=== PATIENT | male | born 1950 | race Caucasian/White ===

== ENCOUNTER 2018-04-27 16:56 | Emergency (ER) | payer BC ==
[~2018-04-27] VITALS: Ht 177.8 cm; Wt 78.0 kg
[~2018-04-27 16:56] MED LIST: GABA300C10 PO; NAPR-685 PO; PROP10TA PO; ZOLP12.54 PO
[2018-04-27 17:23] VITALS: BP 132/72
[2018-04-27] MEDS ORDERED: THIAMINE 100MG TABLET PO ONE (18:00)
[2018-04-27 18:20] LABS: BASOPHILS # (AUTO) 0.05 x10^3/uL (0-0.1); BASOPHILS % (AUTO) 1 % (0-1); EOSINOPHILS # (AUTO) 0.01 x10^3/uL (0-0.4); EOSINOPHILS % (AUTO) 0 % (1-7); LYMPHOCYTES % (AUTO) 20 % (22-44); MD NO; MEAN CORPUSCULAR HEMOGLOBIN 30.9 pg (27.5-34.5); MEAN CORPUSCULAR HGB CONC 33.7 g/dL (33.2-36.2); MEAN CORPUSCULAR VOLUME 91.7 fL (81-97); MEAN PLATELET VOLUME 7.6 fL (7.4-10.4); MONOCYTES # (AUTO) 0.92 x10^3/uL (0.2-0.8); MONOCYTES % (AUTO) 10 % (2-9); NEUTROPHILS # (AUTO) 6.43 x10^3/uL (1.8-6.8); NEUTROPHILS % (AUTO) 69 % (42-75); PLATELET COUNT 266 x10^3/uL (130-400); RED CELL DISTRIBUTION WIDTH 18.2 % (9.4-14.8)
[2018-04-27 18:33] LABS: ALBUMIN 3.6 g/dL (3.4-5.0); ANION GAP 14 mmol/L (5-15); CALCIUM 8.9 mg/dL (8.5-10.1); CHLORIDE 99 mmol/L (98-107); CREATININE 1.09 mg/dL (0.7-1.3)
[2018-04-27] MEDS ORDERED: THIAMINE 100MG TABLET ONE (18:34)
[2018-04-27 18:48] LABS: SALICYLATE LEVEL < 1.7 mg/dL (2.8-20.0)
[2018-04-27 18:49] LABS: ACETAMINOPHEN < 2 mcg/mL (10-30)
== END 2018-04-27 20:42 | disposition home or self-care (01) ==
LOC: ED 20:35
DX: F10.220 Alcohol dependence with intoxication, uncomplicated (principal); Z71.41 Alcohol abuse counseling and surveillance of alcoholic
CPT/HCPCS: 36415; 80048; 80307; 80329; 82040; 85025; 99284; G0480

== ENCOUNTER 2019-06-26 11:27 | Emergency (ER) | payer MEDICARE ==
[~2019-06-26] VITALS: Ht 180.3 cm; Wt 90.0 kg
[~2019-06-26 11:27] MED LIST changes: -PROP10TA PO; +PROP10TA16 PO
--- NOTE | 2019-06-26 11:42 | NUR ---
MALIK SUGGS, PT FOUND DOWN BY NEIGHBORS. PT INTOXICATED. PT STATES TO EMS THAT HE ALSO TOOK PILLS TO END HIS LIFE. WHEN ASKED IF PT TOOK PILLS IN ATTEMPT TO END LIFE, PT STATES "NOT THAT I RECALL" PT ORIENTED TO SELF ONLY AT THIS TIME, INTOXICATED. PT MOVING ALL EXTREMITIES, NEURO INTACT. PT TO BP, CARD MONITOR, CONT PULSE OX, SITTER AT BEDSIDE FOR PT SAFETY.
[2019-06-26] MEDS ORDERED: THIAMINE 100 MG in SODIUM CHLORIDE 0.9% 50 ML IVPB ONE (12:00)
[2019-06-26] MEDS ORDERED: SODIUM CHLORIDE 0.9% 1,000ML IVBOLUS ONE (12:00)
--- NOTE | 2019-06-26 12:10 | NUR ---
BREAK RN FOR PRIMARY RN BEATRICE. PT RESTING IN POSITION OF COMFORT. SITTER AT BEDSIDE FOR SAFETY OBSERVATION AND REDIRECTION WHEN PT ATTEMPTS TO GET OUT OF BED. PT DENIES ANY SI/HI AT TIME. SR ON MONITOR. VSS. +ETOH TODAY. ABLE TO ANSWER ORIENTATION QUESTIONS, "JUNE 2019," "PRESIDENT SARTHAK." "IN [place]" AND NAME AND . A&OX4. THIAMINE REQUESTED FROM PHARMACY. CALL LIGHT IN REACH. FALL PRECUATIONS IN PLACE. SIDE RAILS UPX2.
--- NOTE | 2019-06-26 12:18 | NUR ---
BREAK RN. THIAMINE RECEIVED FROM PHARMACY. ADMIN ON IV PUMP PER MD ORDER. LAB AT BEDSIDE. SITTER AT BEDSIDE. VSS. CALL LIGHT AND FALL PRECAUTIONS IN PLACE.
--- NOTE | 2019-06-26 12:30 | NUR ---
BREAK RN. REPORT AND CARE BACK TO PRIMARY LAHSAWN BARRON AT THIS TIME.
[2019-06-26 12:33] LABS: BASOPHILS # (AUTO) 0.04 x10^3/uL (0-0.1); BASOPHILS % (AUTO) 1 % (0-1); EOSINOPHILS # (AUTO) 0.07 x10^3/uL (0-0.4); EOSINOPHILS % (AUTO) 1 % (1-7); LYMPHOCYTES % (AUTO) 30 % (22-44); MD NO; MEAN CORPUSCULAR HEMOGLOBIN 32.3 pg (27.5-34.5); MEAN CORPUSCULAR HGB CONC 33.6 g/dL (33.2-36.2); MEAN CORPUSCULAR VOLUME 95.9 fL (81-97); MEAN PLATELET VOLUME 7.3 fL (7.4-10.4); MONOCYTES # (AUTO) 0.71 x10^3/uL (0.2-0.8); MONOCYTES % (AUTO) 13 % (2-9); NEUTROPHILS % (AUTO) 55 % (42-75); PLATELET COUNT 241 x10^3/uL (130-400); RED BLOOD COUNT 5.11 x10^6/uL (4.38-5.82); RED CELL DISTRIBUTION WIDTH 15.3 % (9.4-14.8)
[2019-06-26 12:48] LABS: ALBUMIN 3.8 g/dL (3.4-5.0); ANION GAP 8 mmol/L (5-15); CALCIUM 8.3 mg/dL (8.5-10.1); CHLORIDE 107 mmol/L (98-107)
[2019-06-26 12:52] LABS: ALANINE AMINOTRANSFERASE 44 U/L (12-78); ALKALINE PHOSPHATASE 57 U/L (45-117); BILIRUBIN,TOTAL 0.5 mg/dL (0.2-1.0); CREATININE 0.82 mg/dL (0.7-1.3); SALICYLATE LEVEL 2.2 mg/dL (2.8-20.0); TOTAL PROTEIN 7.8 g/dL (6.4-8.2)
--- NOTE | 2019-06-26 12:54 | NUR ---
PT RESTING ON GURNEY, NOW SINGING AND HOLDING UP PULSE OX IN THE AIR, WAVING ARMS AROUND. SITTER REMAINS AT BEDSIDE FOR SAFETY. NAD NOTED
--- NOTE | 2019-06-26 14:00 | NUR ---
RECEIVED REPORT FROM BEATRICE. PT PRESENTING INEBRIATED. NEEDED TO REDIRECT PT TO KEEP HIM IN RFORT [place]. PT IN VIEW OF SITTER.
[2019-06-26 18:00] VITALS: BP 131/77
--- NOTE | 2019-06-26 18:00 | NUR ---
AMBULATED DOWN SOARES, STEADY GAIT AND WITHOUT ASSISTANCE
== END 2019-06-26 18:43 | disposition home or self-care (01) ==
LOC: ED 15:12
DX: F10.220 Alcohol dependence with intoxication, uncomplicated (principal); Y90.9 Presence of alcohol in blood, level not specified
CPT/HCPCS: 36415; 80053; 80307; 85025; 96365; 99283; J3411; J7030

== ENCOUNTER 2019-07-20 15:41 | Inpatient (IN) | payer MEDICARE ==
[~2019-07-20] VITALS: Ht 182.9 cm; Wt 178.1 kg
[2019-07-20] MEDS ORDERED: SODIUM CHLORIDE 0.9% 1,000 ML IV ONE (15:48)
--- NOTE | 2019-07-20 15:54 | NUR ---
Pt walked to room with slightly unsteady gait. Pt reports increased drinking and wanting help to go to a "medical rehab". Pt fell (unknown when) and broke his glasses and bruised his right eye socket. Pt cooperative but very tearful. Pt on all monitors and in gown. Pt given call light. Side rails up for safety. EMS reports BS 106. EMS reports pt was incontinent of urine upon arrival.
[2019-07-20] MEDS ORDERED: LORazepam 2 MG/ML, 1ML IV ONE (16:00)
[2019-07-20] MEDS ORDERED: SODIUM CHLORIDE FLUSH 10ML SYR IVF ONE (16:00)
[2019-07-20] MEDS ORDERED: MAGNESIUM SULFATE 1 GM, THIAMINE 100 MG, FOLIC ACID 1 MG, MVI ADULT 10 ML in SODIUM CHL... IV ONE (16:00)
--- NOTE | 2019-07-20 16:19 | NUR ---
PIV started with blood draw. Pt was incontient of urine. Pt's linen changed and urinal provided. Pt remains on all monitors. Call light within reach. Side rails up for safety.
[2019-07-20] MEDS ORDERED: LORazepam 2 MG/ML, 1ML ONE ×2 (16:24→16:34)
[2019-07-20 16:28] LABS: BASOPHILS # (AUTO) 0.04 x10^3/uL (0-0.1); BASOPHILS % (AUTO) 1 % (0-1); EOSINOPHILS # (AUTO) 0.06 x10^3/uL (0-0.4); EOSINOPHILS % (AUTO) 1 % (1-7); LYMPHOCYTES # (AUTO) 1.38 x10^3/uL (1-3.4); LYMPHOCYTES % (AUTO) 26 % (22-44); MD NO; MEAN CORPUSCULAR HGB CONC 33.2 g/dL (33.2-36.2); MEAN CORPUSCULAR VOLUME 99.4 fL (81-97); MEAN PLATELET VOLUME 7.3 fL (7.4-10.4); MONOCYTES # (AUTO) 0.87 x10^3/uL (0.2-0.8); MONOCYTES % (AUTO) 16 % (2-9); NEUTROPHILS # (AUTO) 3.03 x10^3/uL (1.8-6.8); NEUTROPHILS % (AUTO) 56 % (42-75); PLATELET COUNT 208 x10^3/uL (130-400); RED BLOOD COUNT 4.81 x10^6/uL (4.38-5.82); RED CELL DISTRIBUTION WIDTH 17.4 % (9.4-14.8)
[2019-07-20 16:29] LABS: INTERNATIONAL NORMALIZED RATIO 0.9 (0.93-1.1); PROTHROMBIN TIME 9.5 Seconds (9.6-11.5)
[2019-07-20 16:31] LABS: ALANINE AMINOTRANSFERASE 100 U/L (12-78); ALBUMIN 3.9 g/dL (3.4-5.0); ANION GAP 12 mmol/L (5-15); CALCIUM 8.3 mg/dL (8.5-10.1); CHLORIDE 102 mmol/L (98-107); CREATININE 0.86 mg/dL (0.7-1.3)
[2019-07-20 16:43] LABS: ALKALINE PHOSPHATASE 95 U/L (45-117); BILIRUBIN,TOTAL 0.4 mg/dL (0.2-1.0); TOTAL PROTEIN 8.2 g/dL (6.4-8.2)
--- NOTE | 2019-07-20 16:52 | NUR ---
Pt to imagning. Awaiting banana bag from pharmacy.
--- NOTE | 2019-07-20 17:19 | NUR ---
Pt returned from imaging. Pt remains on all monitors. VS retaken. Pt reminded again about urinal at bedside. Call light within reach. Bedrails up for safety.
--- NOTE | 2019-07-20 17:48 | NUR ---
Banana bag started. Pt was able to urinate in urinal. Urine sent to lab. Pt status remains unchanged.
[2019-07-20 18:34] LABS: MICROSCOPIC NOT IND
[2019-07-20 18:43] LABS: CULTURE INDICATED? NO
--- NOTE | 2019-07-20 19:43 | NUR ---
Pt resting on gurney. Pt no longer crying when talking to this RN. Banana bag continues to run. Pt given additonal blanket.
--- NOTE | 2019-07-20 20:29 | NUR ---
Admitting MD at bedside. Pt given tissues and water.
--- NOTE | 2019-07-20 21:11 | NUR ---
Pt has now tolerated two PO water bottles.
[2019-07-20] MEDS: POTASSIUM CHLORIDE 20 MEQ, MAGNESIUM SULFATE 2 GM, THIAMINE 200 MG, MVI ADULT 10 ML, FO... IV SCH (21:43)
[2019-07-20] MEDS ORDERED: LABETALOL 5MG/ML, 20ML IVPush PRN (22:00)
[2019-07-20] MEDS ORDERED: ONDANSETRON 2MG/ML, 2ML IVPush PRN (22:00)
[2019-07-20] MEDS ORDERED: ACETAMINOPHEN 325 MG TABLET PO PRN (22:00)
--- NOTE | 2019-07-20 22:30 | NUR ---
Report to LASHAWN Alexis
[2019-07-20 23:30] VITALS: BP 144/75
[2019-07-21] MEDS: LORazepam 1MG TABLET PO PRN ×5 (00:36→19:52)
[2019-07-21 03:34] VITALS: BP 123/71
[2019-07-21 06:18] LABS: BASOPHILS # (AUTO) 0.04 x10^3/uL (0-0.1); BASOPHILS % (AUTO) 1 % (0-1); EOSINOPHILS # (AUTO) 0.08 x10^3/uL (0-0.4); EOSINOPHILS % (AUTO) 2 % (1-7); LYMPHOCYTES # (AUTO) 1.32 x10^3/uL (1-3.4); LYMPHOCYTES % (AUTO) 27 % (22-44); MD NO; MEAN CORPUSCULAR HEMOGLOBIN 32.7 pg (27.5-34.5); MEAN CORPUSCULAR HGB CONC 33.1 g/dL (33.2-36.2); MEAN CORPUSCULAR VOLUME 98.9 fL (81-97); MEAN PLATELET VOLUME 7.4 fL (7.4-10.4); MONOCYTES # (AUTO) 0.77 x10^3/uL (0.2-0.8); MONOCYTES % (AUTO) 16 % (2-9); NEUTROPHILS # (AUTO) 2.75 x10^3/uL (1.8-6.8); NEUTROPHILS % (AUTO) 56 % (42-75); PLATELET COUNT 172 x10^3/uL (130-400); RED BLOOD COUNT 4.08 x10^6/uL (4.38-5.82); RED CELL DISTRIBUTION WIDTH 17.1 % (9.4-14.8)
[2019-07-21 06:33] LABS: ANION GAP 11 mmol/L (5-15); CALCIUM 7.6 mg/dL (8.5-10.1); CHLORIDE 103 mmol/L (98-107)
[2019-07-21 06:37] LABS: ALANINE AMINOTRANSFERASE 82 U/L (12-78); ALKALINE PHOSPHATASE 77 U/L (45-117); BILIRUBIN,TOTAL 0.6 mg/dL (0.2-1.0); CREATININE 0.67 mg/dL (0.7-1.3); TOTAL PROTEIN 6.5 g/dL (6.4-8.2)
[2019-07-21 07:27] VITALS: BP 143/76
[2019-07-21] MEDS: SENNA/DOCUSATE TABLET PO SCH (07:39)
[2019-07-21] MEDS: POTASSIUM CHLORIDE 20 MEQ, MAGNESIUM SULFATE 2 GM, THIAMINE 200 MG, MVI ADULT 10 ML, FO... IV SCH (08:40)
[2019-07-21 15:29] VITALS: BP 121/72
[2019-07-21 21:38] VITALS: BP 117/72
[2019-07-22 00:27] VITALS: BP 128/76
[2019-07-22] MEDS: LORazepam 1MG TABLET PO PRN (00:29)
[2019-07-22 07:22] VITALS: BP 137/78
[2019-07-22] MEDS: SENNA/DOCUSATE TABLET PO SCH (09:00)
[2019-07-22] MEDS: LORazepam 0.5MG TABLET PO PRN ×3 (09:40→20:18)
[2019-07-22] MEDS: POTASSIUM CHLORIDE 20 MEQ, MAGNESIUM SULFATE 2 GM, THIAMINE 200 MG, MVI ADULT 10 ML, FO... IV SCH (10:52)
[2019-07-22] MEDS ORDERED: ENALAPRILAT 1.25 MG/ML, 2ML IVPush PRN (12:30)
[2019-07-22 13:21] VITALS: BP 164/91
[2019-07-22 19:16] VITALS: BP 154/89
[2019-07-23 03:30] VITALS: BP 125/83
[2019-07-23 05:33] LABS: BASOPHILS # (AUTO) 0.02 x10^3/uL (0-0.1); BASOPHILS % (AUTO) 0 % (0-1); EOSINOPHILS # (AUTO) 0.14 x10^3/uL (0-0.4); EOSINOPHILS % (AUTO) 2 % (1-7); LYMPHOCYTES # (AUTO) 1.32 x10^3/uL (1-3.4); LYMPHOCYTES % (AUTO) 20 % (22-44); MD NO; MEAN CORPUSCULAR HEMOGLOBIN 33.3 pg (27.5-34.5); MEAN CORPUSCULAR HGB CONC 33.4 g/dL (33.2-36.2); MEAN CORPUSCULAR VOLUME 99.7 fL (81-97); MEAN PLATELET VOLUME 8.3 fL (7.4-10.4); MONOCYTES # (AUTO) 1.03 x10^3/uL (0.2-0.8); MONOCYTES % (AUTO) 16 % (2-9); NEUTROPHILS # (AUTO) 3.98 x10^3/uL (1.8-6.8); NEUTROPHILS % (AUTO) 61 % (42-75); PLATELET COUNT 136 x10^3/uL (130-400); RED BLOOD COUNT 4.23 x10^6/uL (4.38-5.82); RED CELL DISTRIBUTION WIDTH 17.2 % (9.4-14.8)
[2019-07-23 05:40] LABS: ALBUMIN 3.3 g/dL (3.4-5.0); ANION GAP 6 mmol/L (5-15); CALCIUM 8.2 mg/dL (8.5-10.1); CHLORIDE 105 mmol/L (98-107)
[2019-07-23 05:45] LABS: ALANINE AMINOTRANSFERASE 165 U/L (12-78); ALKALINE PHOSPHATASE 86 U/L (45-117); BILIRUBIN,TOTAL 0.8 mg/dL (0.2-1.0); CREATININE 0.72 mg/dL (0.7-1.3)
[2019-07-23 07:27] VITALS: BP 137/87
[2019-07-23] MEDS: SENNA/DOCUSATE TABLET PO SCH (09:00)
[2019-07-23] MEDS: THIAMINE 100MG TABLET PO SCH (09:22)
[2019-07-23] MEDS: MULTIVITAMINS/MINERALS TABLET PO SCH (09:22)
[2019-07-23] MEDS: FOLIC ACID 1 MG TABLET PO SCH (09:22)
[2019-07-23 14:20] VITALS: BP 134/84
[2019-07-23 19:11] VITALS: BP 145/87
[2019-07-23] MEDS: MELATONIN 3 MG TABLET PO SCH (21:12)
[2019-07-24 02:09] VITALS: BP 132/81
[2019-07-24 07:35] VITALS: BP 147/82
[2019-07-24] MEDS: SENNA/DOCUSATE TABLET PO SCH (07:35)
[2019-07-24] MEDS: THIAMINE 100MG TABLET PO SCH (08:16)
[2019-07-24] MEDS: MULTIVITAMINS/MINERALS TABLET PO SCH (08:16)
[2019-07-24] MEDS: FOLIC ACID 1 MG TABLET PO SCH (08:16)
[2019-07-24 12:16] LABS: ALANINE AMINOTRANSFERASE 218 U/L (12-78); ALBUMIN 3.6 g/dL (3.4-5.0); ANION GAP 8 mmol/L (5-15); CALCIUM 9.6 mg/dL (8.5-10.1); CHLORIDE 103 mmol/L (98-107)
[2019-07-24 12:19] LABS: ALKALINE PHOSPHATASE 96 U/L (45-117); BILIRUBIN,TOTAL 0.7 mg/dL (0.2-1.0); CREATININE 0.77 mg/dL (0.7-1.3); TOTAL PROTEIN 7.8 g/dL (6.4-8.2)
[2019-07-24 13:59] VITALS: BP 128/77
[2019-07-24 19:54] VITALS: BP 138/85
[2019-07-24] MEDS: MELATONIN 3 MG TABLET PO SCH (21:07)
[2019-07-25 03:50] VITALS: BP 111/68
[2019-07-25] MEDS: SENNA/DOCUSATE TABLET PO SCH (07:28)
[2019-07-25] MEDS: MULTIVITAMINS/MINERALS TABLET PO SCH (08:30)
[2019-07-25] MEDS: THIAMINE 100MG TABLET PO SCH (08:30)
[2019-07-25] MEDS: FOLIC ACID 1 MG TABLET PO SCH (08:30)
[2019-07-25 08:34] VITALS: BP 134/87
[2019-07-25 10:29] LABS: ALANINE AMINOTRANSFERASE 232 U/L (12-78); ALBUMIN 3.5 g/dL (3.4-5.0); ANION GAP 6 mmol/L (5-15); CALCIUM 8.9 mg/dL (8.5-10.1); CHLORIDE 102 mmol/L (98-107); CREATININE 0.98 mg/dL (0.7-1.3)
[2019-07-25 10:31] LABS: ALKALINE PHOSPHATASE 90 U/L (45-117); BILIRUBIN,TOTAL 0.7 mg/dL (0.2-1.0); TOTAL PROTEIN 7.8 g/dL (6.4-8.2)
[2019-07-25] MEDS ORDERED: MULT-484 PO (11:21)
[2019-07-25] MEDS ORDERED: FOLI-17 PO (11:21)
[2019-07-25] MEDS ORDERED: THIA100T67 PO (11:21)
== END 2019-07-25 15:34 | disposition home health service (06) | DRG 896 ==
LOC: ED 16:04 → EDIP 23:24 → 3N 23:31
PROVIDERS: ADMIT Family Medicine; ATTEND Family Medicine
DX: F10.229 Alcohol dependence with intoxication, unspecified (principal); G92 Toxic encephalopathy; Z68.43 Body mass index [BMI] 50.0-59.9, adult; B15.9 Hepatitis A without hepatic coma; F10.239 Alcohol dependence with withdrawal, unspecified; E86.0 Dehydration; R62.7 Adult failure to thrive; S00.11XA Contusion of right eyelid and periocular area, initial encounter; R53.81 Other malaise; D75.89 Other specified diseases of blood and blood-forming organs; R74.0 Nonspecific elevation of levels of transaminase and lactic acid dehydrogenase [LDH]; F32.9 Major depressive disorder, single episode, unspecified; J32.0 Chronic maxillary sinusitis; K76.0 Fatty (change of) liver, not elsewhere classified; S09.90XA Unspecified injury of head, initial encounter; Z87.891 Personal history of nicotine dependence; W18.39XA Other fall on same level, initial encounter; Y93.89 Activity, other specified; Y92.89 Other specified places as the place of occurrence of the external cause; Y99.8 Other external cause status; Y90.9 Presence of alcohol in blood, level not specified
CPT/HCPCS: 36415; 70450; 70486; 76700; 80053; 80074; 80307; 81003; 82607; 83735; 84100; 84443; 85025; 85610; 96361; 96365; 96375; G0378; J3411; J3475; J3480; J7042; J2060; J7030

== ENCOUNTER 2019-11-08 10:45 | Emergency (ER) | payer MEDICARE ==
[~2019-11-08] VITALS: Ht 180.3 cm; Wt 75.0 kg
[~2019-11-08 10:45] MED LIST changes: +FOLI-17 PO; +MULT-484 PO; +THIA100T67 PO
--- NOTE | 2019-11-08 11:06 | NUR ---
PT AMBULATING WITH RATE CLERK TO ROOM. STEADY GAIT.
--- NOTE | 2019-11-08 11:09 | NUR ---
PT PRESENTED TO ED D/T SOB X "A COUPLE DAYS." PT STATES WENT TO THE "STORE LAST WEEK" AND HAS BEEN HAVING SOB AND "BEEN SWEATING" EVER SINCE. +NONPRODUCTIVE COUGH. DENIES N/V.
[2019-11-08] MEDS ORDERED: ALPR2TAB2 PO (11:11)
[2019-11-08] MEDS ORDERED: ANTIDEPRESSANT (11:11)
--- NOTE | 2019-11-08 11:26 | NUR ---
ERMD AT BEDSIDE.
--- NOTE | 2019-11-08 11:59 | NUR ---
REPORT TO LASHAWN SOL.
--- NOTE | 2019-11-08 12:02 | NUR ---
RECEIVED REPORT FROM TRUNG HARDIN. ASSUMING CARE AT THIS TIME. XRAY AT BEDSIDE.
[2019-11-08 12:08] LABS: BASOPHILS # (AUTO) 0.02 x10^3/uL (0-0.1); BASOPHILS % (AUTO) 0 % (0-1); EOSINOPHILS # (AUTO) 0.02 x10^3/uL (0-0.4); EOSINOPHILS % (AUTO) 0 % (1-7); LYMPHOCYTES # (AUTO) 1.24 x10^3/uL (1-3.4); LYMPHOCYTES % (AUTO) 27 % (22-44); MD NO; MEAN CORPUSCULAR HEMOGLOBIN 31.2 pg (27.5-34.5); MEAN CORPUSCULAR HGB CONC 33.6 g/dL (33.2-36.2); MEAN CORPUSCULAR VOLUME 92.9 fL (81-97); MEAN PLATELET VOLUME 7.6 fL (7.4-10.4); MONOCYTES # (AUTO) 0.79 x10^3/uL (0.2-0.8); MONOCYTES % (AUTO) 17 % (2-9); NEUTROPHILS # (AUTO) 2.56 x10^3/uL (1.8-6.8); NEUTROPHILS % (AUTO) 55 % (42-75); PLATELET COUNT 238 x10^3/uL (130-400)
[2019-11-08 12:17] VITALS: BP 134/83
--- NOTE | 2019-11-08 12:17 | NUR ---
PT RESTING COFORTABLY ON ANN. DEYSI.
[2019-11-08 12:19] LABS: ALANINE AMINOTRANSFERASE 39 U/L (12-78); ALBUMIN 3.4 g/dL (3.4-5.0); ANION GAP 6 mmol/L (5-15); CALCIUM 8.8 mg/dL (8.5-10.1); CHLORIDE 105 mmol/L (98-107); CREATININE 0.92 mg/dL (0.7-1.3)
[2019-11-08 12:23] LABS: ALKALINE PHOSPHATASE 48 U/L (45-117); BILIRUBIN,TOTAL 0.7 mg/dL (0.2-1.0); TOTAL PROTEIN 7.1 g/dL (6.4-8.2); TROPONIN I < 0.015 ng/mL (0.000-0.045)
--- NOTE | 2019-11-08 12:27 | NUR ---
ALL RESULTS ARE BACK AT THIS TIME. CHART UP FOR RECHECK.
== END 2019-11-08 13:03 | disposition home or self-care (01) ==
LOC: ED 11:10
DX: B34.9 Viral infection, unspecified (principal)
CPT/HCPCS: 36415; 71045; 80053; 83880; 84484; 85025; 93005; 99285

== ENCOUNTER 2020-03-11 17:14 | Emergency (ER) | payer MEDICARE ==
[~2020-03-11] VITALS: Ht 180.3 cm; Wt 66.0 kg
[~2020-03-11 17:14] MED LIST changes: +ALPR2TAB2 PO; +ANTIDEPRESSANT; -ZOLP12.54 PO; +ZOLP12.56 PO
--- NOTE | 2020-03-11 17:14 | NUR ---
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
--- NOTE | 2020-03-11 18:04 | NUR ---
PT UPRIGHT ON GURNEY WITH EYES CLOSED & DOG ON LAP, NAD WITH EQUAL CHEST RISE/FALL, NO NEEDS AT THIS TIME, CALL LIGHT WITHIN REACH.
--- NOTE | 2020-03-11 18:55 | NUR ---
REPORT GIVEN TO FLORENCIA
[2020-03-11 18:56] VITALS: BP 138/92
--- NOTE | 2020-03-11 19:07 | NUR ---
PT ABLE TO AMBUALTE WITH STEADY GAIT.
== END 2020-03-11 19:18 | disposition home or self-care (01) ==
LOC: ED 19:00
DX: F10.220 Alcohol dependence with intoxication, uncomplicated (principal); Y90.9 Presence of alcohol in blood, level not specified
CPT/HCPCS: 99283

== ENCOUNTER → 2020-06-08 | Outpatient (CLI) | payer MEDICARE | END | disposition home or self-care (01) | LOC: CFH 07:40 | DX: Z12.2 Encounter for screening for malignant neoplasm of respiratory organs (principal); J84.10 Pulmonary fibrosis, unspecified; I25.10 Atherosclerotic heart disease of native coronary artery without angina pectoris; Z87.891 Personal history of nicotine dependence | CPT/HCPCS: 76706; G0297 ==

== ENCOUNTER 2020-06-24 13:56 | Emergency (ER) | payer MEDICARE ==
[~2020-06-24] VITALS: Ht 180.3 cm; Wt 80.8 kg
[2020-06-24 14:01] VITALS: BP 131/79
--- NOTE | 2020-06-24 17:33 | NUR ---
NA IN LOBBY X1
--- NOTE | 2020-06-24 18:00 | NUR ---
na x 2
--- NOTE | 2020-06-24 18:21 | NUR ---
na x 3
== END 2020-06-24 18:41 | disposition left against medical advice (07) ==
LOC: ED 18:35
DX: F32.9 Major depressive disorder, single episode, unspecified (principal); F10.129 Alcohol abuse with intoxication, unspecified; R05 Cough; Y90.9 Presence of alcohol in blood, level not specified
CPT/HCPCS: 99281